=== PATIENT | female | born 1975 | race Caucasian/White ===

== ENCOUNTER 2018-07-22 17:32 | Emergency (ER) | payer BC ==
--- OUTSIDE RECORDS SUMMARY | 2018-07-22 17:34 | XMS REPORT ---
:1975 [facility] Address [address] [place] [address] Dr. Viramontes [address] [place] [id number] Care Team Providers Name Role Phone Unavailable Unavailable Unavailable Problems This patient has no known problems. Allergies, Adverse Reactions, Alerts This patient has no known allergies or adverse reactions. Medications This patient has no known medications.
--- OUTSIDE RECORDS SUMMARY | 2018-07-22 17:34 | XMS REPORT ---
:1975 Author Organization eClinical[employer] Care Team Providers Name Role Phone Tory Landaverde Provider Role Unavailable Allergies No Known Allergies Problems Problem Type Condition Code Onset Dates Condition Status Problem Hematuria, unspecified type R31.9 Active Problem Hypothyroidism, unspecified type E03.9 Active Problem Urinary tract infection, site not N39.0 Active specified Problem Obesity (BMI 35.0-39.9 without E66.9 Active comorbidity) Problem Hypercholesterolemia E78.00 Active Problem Hypertension, unspecified type I10 Active Problem Hyperglycemia R73.9 Active Medications No Known Medications Results No Known Results Summary Purpose eClinicalWorks Submission
--- OUTSIDE RECORDS SUMMARY | 2018-07-22 17:34 | XMS REPORT ---
:1975 Author Organization eClinical[employer] Care Team Providers Name Role Phone Amos Adriana Provider Role Unavailable Allergies, Adverse Reactions, Alerts Substance Reaction Event Type Procardia flushing/redness Drug Allergy Lisinopril fatigue Drug Allergy Problems Problem Type Condition Code Onset Dates Condition Status Assessment Insect bite, initial encounter W57.XXXA Active Assessment Cellulitis of left leg L03.116 Active Problem Hematuria, unspecified type R31.9 Active Problem Hypothyroidism, unspecified type E03.9 Active Problem Urinary tract infection, site not N39.0 Active specified Problem Obesity (BMI 35.0-39.9 without E66.9 Active comorbidity) Problem Hypercholesterolemia E78.00 Active Problem Hypertension, unspecified type I10 Active Problem Hyperglycemia R73.9 Active Medications Medication Code Code Instructions Start End Status Dosage System Date Date Flonase [facility] 96846379382 50 MCG/ACT Active 1 spray in Nasally Once a each day nostril Iron [facility] 12947577275 325 (65 Fe) MG Active 1 tablet Orally Once a day Synthroid [facility] 13009916817 88 MCG Orally Active 1 tablet Once a day on an empty stomach in the morning Losartan [facility] 81697241965 25 mg Orally Active 1 tablet Potassium Once a day Vitamin B-12 [facility] 34262259269 500 MCG Orally Active 1 tablet Once a day Clarinex-D 12 [facility] 17343312964 2.5-120 MG Active 1 tablet Hour Orally every 12 hrs Cipro [facility] 62079121999 500 MG Orally November 16, Active 1 tablet twice a day 2017 Clindamycin HCl [facility] 37229560011 300 MG Orally Dec 11, Active 1 capsule QID 2017 Results No Known Results Summary Purpose eClinicalWorks Submission
--- OUTSIDE RECORDS SUMMARY | 2018-07-22 17:34 | XMS REPORT ---
:1975 Author Organization eClinicalWorks Care Team Providers Name Role Phone Tory Landaverde Provider Role Unavailable Allergies, Adverse Reactions, Alerts Substance Reaction Event Type Procardia flushing/redness Drug Allergy Lisinopril fatigue Drug Allergy Problems Problem Type Condition Code Onset Dates Condition Status Assessment Hematuria, unspecified type R31.9 Active Assessment Urinary tract infection, site not N39.0 Active specified Problem Hematuria, unspecified type R31.9 Active Problem Hypothyroidism, unspecified type E03.9 Active Problem Urinary tract infection, site not N39.0 Active specified Problem Obesity (BMI 35.0-39.9 without E66.9 Active comorbidity) Problem Hypercholesterolemia E78.00 Active Problem Hypertension, unspecified type I10 Active Problem Hyperglycemia R73.9 Active Medications Medication Code Code Instructions Start End Status Dosage System Date Date Vitamin B-12 [facility] 45983669935 500 MCG Orally Active 1 tablet Once a day Cipro [facility] 80380054605 500 MG Orally November 16, Active 1 tablet twice a day 2017 Losartan [facility] 73355622905 25 mg Orally Active 1 tablet Potassium Once a day Flonase [facility] 80337115248 50 MCG/ACT Active 1 spray in Nasally Once a each day nostril Iron [facility] 07668196063 325 (65 Fe) MG Active 1 tablet Orally Once a day Clarinex-D [address] [facility] 21569814116 2.5-120 MG Active 1 tablet Hour Orally every 12 hrs Synthroid [facility] 53069154237 88 MCG Orally Active 1 tablet Once a day on an empty stomach in the morning Results Name Result Date Reference Range Unit Abnormality Flag URINALYSIS AUTO W/O SCOPE (10096) ----JOHN 1+ [id number] ----NIT POS [id number] ----PROTEIN 3+ [id number] ----pH 8.5 [id number] ----GLUCOSE NEG [id number] ----KETONES NEG [id number] ----SPECIFIC GRAVITY 1.020 20171116 ----BLO 3+ [id number] Summary Purpose eClinicalWorks Submission
--- OUTSIDE RECORDS SUMMARY | 2018-07-22 17:35 | XMS REPORT ---
:1975 Author Organization eClinicalWorks Care Team Providers Name Role Phone Adriana Foster Provider Role Unavailable Allergies No Known Allergies Problems Problem Type Condition Code Onset Dates Condition Status Problem Hypertension, unspecified type I10 Active Problem Hypercholesterolemia E78.00 Active Problem Hypothyroidism, unspecified type E03.9 Active Problem Bloating R14.0 Active Problem Abdominal pain, unspecified R10.9 Active abdominal location Problem History of ovarian cyst Z87.42 Active Problem Hyperglycemia R73.9 Active Problem Obesity (BMI 35.0-39.9 without E66.9 Active comorbidity) Problem Urinary tract infection, site not N39.0 Active specified Problem Hematuria, unspecified type R31.9 Active Medications No Known Medications Results No Known Results Summary Purpose eClinicalWorks Submission
--- OUTSIDE RECORDS SUMMARY | 2018-07-22 17:35 | XMS REPORT ---
:1975 Author Organization eClinicalWorks Care Team Providers Name Role Phone Anant Fosteren Provider Role Unavailable Allergies, Adverse Reactions, Alerts Substance Reaction Event Type Procardia flushing/redness Drug Allergy Lisinopril fatigue Drug Allergy Problems Problem Type Condition Code Onset Dates Condition Status Assessment Hyperglycemia R73.9 Active Assessment Hypertension, unspecified type I10 Active Assessment Obesity (BMI 35.0-39.9 without E66.9 Active comorbidity) Assessment Hypothyroidism, unspecified type E03.9 Active Assessment Hypercholesterolemia E78.00 Active Problem Hematuria, unspecified type R31.9 Active Problem Hypothyroidism, unspecified type E03.9 Active Problem Urinary tract infection, site not N39.0 Active specified Problem Obesity (BMI 35.0-39.9 without E66.9 Active comorbidity) Problem Hypercholesterolemia E78.00 Active Problem Hypertension, unspecified type I10 Active Problem Hyperglycemia R73.9 Active Medications Medication Code Code Instructions Start End Status Dosage System Date Date Cipro [facility] 80893337404 500 MG Orally November 16, Active 1 tablet twice a day 2017 Flonase [facility] 34789615024 50 MCG/ACT Active 1 spray in Nasally Once a each day nostril Iron [facility] 72205358945 325 (65 Fe) MG Active 1 tablet Orally Once a day Losartan ND 80997619366 25 mg Orally Active 1 tablet Potassium Once a day Clarinex-D 12 [facility] 66169346206 2.5-120 MG Active 1 tablet Hour Orally every 12 hrs Vitamin B-12 ND 61029061001 500 MCG Orally Active 1 tablet Once a day Clindamycin HCl ND 52049782492 300 MG Orally Dec 11, Active 1 capsule QID 2018 Synthroid [facility] 38706837820 88 MCG Orally Active 1 tablet Once a day on an empty stomach in the morning Results No Known Results Summary Purpose eClinicalWorks Submission
--- OUTSIDE RECORDS SUMMARY | 2018-07-22 17:35 | XMS REPORT ---
:1975 Author Organization eClinicalWorks Care Team Providers Name Role Phone Adriana Foster Provider Role Unavailable Allergies, Adverse Reactions, Alerts Substance Reaction Event Type Procardia flushing/redness Drug Allergy Lisinopril fatigue Drug Allergy Problems Problem Type Condition Code Onset Dates Condition Status Problem Hypertension, unspecified type I10 Active Problem Hypercholesterolemia E78.00 Active Problem Hypothyroidism, unspecified type E03.9 Active Assessment History of ovarian cyst Z87.42 Active Assessment Bloating R14.0 Active Assessment Abdominal pain, unspecified R10.9 Active abdominal location Problem Bloating R14.0 Active Problem Abdominal pain, unspecified R10.9 Active abdominal location Problem History of ovarian cyst Z87.42 Active Problem Hyperglycemia R73.9 Active Problem Obesity (BMI 35.0-39.9 without E66.9 Active comorbidity) Problem Urinary tract infection, site not N39.0 Active specified Problem Hematuria, unspecified type R31.9 Active Medications Medication Code Code Instructions Start End Status Dosage System Date Date Iron [facility] 83898411468 325 (65 Fe) MG Active 1 tablet Orally Once a day Clindamycin HCl ND 58428096191 300 MG Orally Dec 11, Active 1 capsule QID 2018 Clarinex-D 12 ND 37821387611 2.5-120 MG Active 1 tablet Hour Orally every 12 hrs Synthroid ND 04994371106 88 MCG Orally Active 1 tablet on Once a day an empty stomach in the morning Losartan ND 47470335071 25 mg Orally Active 1 tablet Potassium Once a day Vitamin B-12 ND 58171893157 500 MCG Orally Active 1 tablet Once a day Flonase ND 87075249051 50 MCG/ACT Active 1 spray in Nasally Once a each day nostril Cipro ND 87796329905 500 MG Orally November 16, Active 1 tablet twice a day 2017 Alprazolam ND 81957859375 0.25 MG Orally Feb 24, Active as directed 1 tablet 2017 minutes prior to dental procedure; may repeat prn in 30 minutes Results Name Result Date Reference Range Unit Abnormality Flag TEST URINE ----RESULTS Negative [id number] Summary Purpose eClinicalWorks Submission
--- OUTSIDE RECORDS SUMMARY | 2018-07-22 17:35 | XMS REPORT ---
:1975 Author Organization eClinicalWorks Care Team Providers Name Role Phone Anant Fosteren Provider Role Unavailable Allergies, Adverse Reactions, Alerts Substance Reaction Event Type Procardia flushing/redness Drug Allergy Lisinopril fatigue Drug Allergy Problems Problem Type Condition Code Onset Dates Condition Status Problem Obesity (BMI 35.0-39.9 without E66.9 Active comorbidity) Problem Hematuria, unspecified type R31.9 Active Problem Hyperglycemia R73.9 Active Problem Bloating R14.0 Active Assessment Hypercholesterolemia E78.00 Active Problem Abdominal pain, unspecified R10.9 Active abdominal location Assessment Hypothyroidism, unspecified type E03.9 Active Problem History of ovarian cyst Z87.42 Active Problem Obesity (BMI 30-39.9) E66.9 Active Problem Urinary tract infection, site not N39.0 Active specified Problem Dietary surveillance and counseling Z71.3 Active Problem Diverticulosis of intestine without K57.90 Active bleeding, unspecified intestinal tract location Assessment Obesity (BMI 35.0-39.9 without E66.9 Active comorbidity) Assessment Dietary surveillance and counseling Z71.3 Active Assessment Hyperglycemia R73.9 Active Assessment Hypertension, unspecified type I10 Active Problem Hypertension, unspecified type I10 Active Assessment Diverticulosis of intestine without K57.90 Active bleeding, unspecified intestinal tract location Problem Hypothyroidism, unspecified type E03.9 Active Assessment Influenza A H1N1 infection J10.1 Active Problem Hypercholesterolemia E78.00 Active Medications Medication Code Code Instructions Start End Status Dosage System Date Date Tamiflu ND 12641564646 75 MG Orally June Active 1 capsule Twice a day 2018 Alprazolam ND 48261877804 0.25 MG Orally Jan 30, Active as directed 1 tablet 30 2017 minutes prior to dental procedure; may repeat prn in 30 minutes Losartan ND 31843171414 25 mg Orally Active 1 tablet Potassium Once a day Synthroid ND 62537962444 88 MCG Orally Active 1 tablet on Once a day an empty stomach in the morning Flonase ND 33354705112 50 MCG/ACT Active 1 spray in Nasally Once a each day nostril Iron [facility] 72692832368 325 (65 Fe) MG Active 1 tablet Orally Once a day Cipro [facility] 97113383384 500 MG Orally November 16, Active 1 tablet twice a day 2017 Clindamycin HCl [facility] 41450913991 300 MG Orally Dec 11, Active 1 capsule QID 2017 Clarinex-D 12 [facility] 04669572563 2.5-120 MG Active 1 tablet Hour Orally every 12 hrs Vitamin B-12 [facility] 19794091920 500 MCG Orally Active 1 tablet Once a day Results No Known Results Summary Purpose eClinicalWorks Submission
[2018-07-22 20:36] LABS: Absolute Lymphocytes (CBC) 1.8 K/uL (0.7-4.9); Absolute Monocytes 0.5 K/uL (0.1-1.3); Absolute Neutrophil 4.4 K/uL (1.8-8.0); Basophils % 0.6 % (0-1.3); Eosinophils % 2.4 % (0-4.4); Hematocrit 41.4 % (36.0-45.0); Lymphocytes % 26.7 % (15.3-44.8); MPV 8.9 fL (7.6-11.3); Monocytes % 6.9 % (3.3-12.3); RBC Red Blood Cell Count 4.71 M/uL (3.86-4.86)
--- NOTE | 2018-07-22 20:47 | RAD REPORT ---
EXAM DESCRIPTION: Nithin Single View07/22/2018 8:35 pm CLINICAL HISTORY: Chest pain COMPARISON: 2013 FINDINGS: The patient is in a poor degree of inspiration Mild bilateral pulmonary opacities are suspected. Small pleural effusions may be present. The heart is normal size IMPRESSION: Mild bilateral pulmonary opacities may indicate pneumonia. Small pleural effusions may be present
[2018-07-22 20:51] LABS: BUN Blood Urea Nitrogen 14 mg/dL (7-18); Bicarbonate 28 mmol/L (21-32); Glucose Level 90 mg/dL (74-106); Potassium 4.4 mmol/L (3.5-5.1); Sodium Level 139 mmol/L (136-145); Troponin (Emerg Dept Use Only) < 0.02 ng/mL (0.0-0.045)
[2018-07-22 23:54] LABS: Urine Blood NEGATIVE (NEG); Urine Glucose NEGATIVE (NEG); Urine Protein NEGATIVE (NEG)
--- NOTE | 2018-07-23 00:18 | ER ---
Nurse's Notes [facility] Name: Felipa Hartman Age: 43 yrs Sex: Female : 1975 Arrival Date: 07/22/2018 Time: 17:35 Bed 17 Private MD: Diagnosis: Chest pain, unspecified;Pleurisy Presentation: 07/22 17:46 Presenting complaint: Patient states: i have chest pain that started 2 nights ago, it tw2 hurts when i take a deep breath and when i am laying down it hurts all the time as a severe pressure, yesterday it went a way during the day but last night it hurts worse. Transition of care: patient was not received from another setting of care. Onset of symptoms was July 22, 2018. Risk Assessment: Do you want to hurt yourself or someone else? Patient reports no desire to harm self or others. Initial Sepsis Screen: Does the patient meet any 2 criteria? No. Patient's initial sepsis screen is negative. Does the patient have a suspected source of infection? No. Patient's initial sepsis screen is negative. Care prior to arrival: None. 17:46 Method Of Arrival: Ambulatory tw2 17:46 Acuity: AMADOR 3 tw2 FRAME ALIGNER: 17:47 LMP 07/08/2018 tw2 Historical: - Allergies: 19:00 No Known Allergies; jb4 - Home Meds: 17:49 losartan 25 mg oral tab 1 tab once daily [Active]; levothyroxine 88 mcg tab 1 tab once tw2 daily [Active]; - PMHx: 17:49 Hypertension; Hypothyroidism; tw2 - PSHx: 17:49 Cholecystectomy; bone spur removed; tw2 - Immunization history:: Adult Immunizations. - Social history:: Smoking status: . - Ebola Screening: : Patient denies travel to an Ebola-affected area in the 21 days before illness onset. Screenin:00 Abuse screen: Denies threats or abuse. Nutritional screening: No deficits noted. jb4 Tuberculosis screening: No symptoms or risk factors identified. Fall Risk None identified. Assessment: 20:00 General: Appears in no apparent distress. uncomfortable, Behavior is calm, cooperative, jb4 appropriate for age. Pain: Complains of pain in anterior aspect of right upper chest Pain radiates to right upper quadrant Pain currently is 5 out of 10 on a pain scale. Quality of pain is described as stabbing, Pain began 2-3 days ago. Is continuous. Neuro: Level of Consciousness is awake, alert, obeys commands, Oriented to person, place, time, situation. Cardiovascular: Patient's skin is warm and dry. Respiratory: Airway is patent Respiratory effort is even, unlabored, Respiratory pattern is regular, symmetrical. GI: No signs and/or symptoms were reported involving the gastrointestinal system. : No signs and/or symptoms were reported regarding the genitourinary system. EENT: No signs and/or symptoms were reported regarding the EENT system. Derm: Skin is intact, Skin is pink, warm \T\ dry. Musculoskeletal: Circulation, motion, and sensation intact. 21:00 Reassessment: Patient appears in no apparent distress at this time. Patient and/or jb4 family updated on plan of care and expected duration. Pain level reassessed. Patient is alert, oriented x 3, equal unlabored respirations, skin warm/dry/pink. 22:00 Reassessment: Patient appears in no apparent distress at this time. Patient and/or jb4 family updated on plan of care and expected duration. Pain level reassessed. Patient is alert, oriented x 3, equal unlabored respirations, skin warm/dry/pink. 23:00 Reassessment: Patient appears in no apparent distress at this time. Patient and/or jb4 family updated on plan of care and expected duration. Pain level reassessed. Patient is alert, oriented x 3, equal unlabored respirations, skin warm/dry/pink. 07/23 00:00 Reassessment: Patient appears in no apparent distress at this time. Patient and/or jb4 family updated on plan of care and expected duration. Pain level reassessed. Patient is alert, oriented x 3, equal unlabored respirations, skin warm/dry/pink. Vital Signs: 07/22 17:47 BP 148 / 89; Pulse 73; Resp 17; Temp 97.9(TE); Pulse Ox 98% on R/A; Weight 98.43 kg tw2 (R); Height 5 ft. 6 in. (167.64 cm) (R); Pain 7/10; 20:00 BP 126 / 75; Pulse 65; Resp 16; Pulse Ox 100% on R/A; jb4 21:00 BP 134 / 89; Pulse 69; Resp 16; Pulse Ox 100% on R/A; jb4 22:15 BP 134 / 69; Pulse 70; Resp 16; Pulse Ox 100% on R/A; jb4 07/23 00:00 BP 124 / 72; Pulse 68; Resp 16; Pulse Ox 100% on R/A; jb4 07/22 17:47 Body Mass Index 35.02 (98.43 kg, 167.64 cm) tw2 ED Course: 07/22 17:35 Patient arrived in ED. tw3 17:47 Triage completed. tw2 17:49 Arm band placed on. tw2 19:42 Juno Wilkins MD is Attending Physician. gs 20:00 Patient has correct armband on for positive identification. Bed in low position. Call jb4 light in reach. Side rails up X 1. site monitor on. Pulse ox on. NIBP on. 20:00 No provider procedures requiring assistance completed. Patient maintains SpO2 jb4 saturation greater than 95% on room air. 20:35 XRAY Chest (1 view) In Process Unspecified. EDMS 20:53 Michael Mcclure, ZORA is Primary Nurse. jb4 21:[address] vm2 22:08 Inserted saline lock: 22 gauge in left antecubital area, using aseptic technique. by [facility] Tech. 22:30 CT Chest For PE Angio In Process Unspecified. EDDC 07/23 00:14 Yaniv Coon MD is Referral Physician. gs 00:26 IV discontinued, intact, bleeding controlled. jb4 Administered Medications: 00:07 Not Given (Patient Refused): TORadol 30 mg IVP once jb4 Outcome: 00:15 Discharge ordered by . gs 00:26 Discharged to home ambulatory. jb4 00:26 Condition: stable 00:26 Discharge instructions given to patient, Instructed on discharge instructions, follow up and referral plans. medication usage, Demonstrated understanding of instructions, follow-up care, medications, Prescriptions given X 3. 00:27 Patient left the ED. jb4 Addendum: 07/27/2018 17:08 Addendum: Radiology Result: Attempted to call patient to discuss radiology report. No s s answer. Left . Signatures: Dispatcher [facility] Holly Jimenez RN RN Amber Pennington RN RN tw2 Michael Mcclure, ZORA BLAKELY jb4 Cathleen Greene tw3 Lucille Torres vm2 Deidra Rodriguez mt, Gregory, MD MD
--- NOTE | 2018-07-23 00:19 | EDPHYS ---
Physician Documentation [facility] Name: Felipa Hartman Age: 43 yrs Sex: Female : 1975 Arrival Date: 07/22/2018 Time: 17:35 Bed 17 Private MD: ED Physician Juno Wilkins HPI: 07/23 03:22 This 43 yrs old Female presents to ER via Ambulatory with complaints of Chest gs Pain. 03:22 The patient or guardian reports chest pain that is located primarily in the anterior gs chest wall, right. 03:22 Onset: gradually, 3 day(s) ago. The pain does not radiate. Associated signs and gs symptoms: Pertinent positives: cough, Pertinent negatives: diaphoresis, lower extremity swelling, lightheadedness, near syncope, palpitations, shortness of breath. The chest pain is described as sharp. Duration: The patient or guardian reports multiple episodes, that wax and wane, with no pattern. Modifying factors: the symptoms are aggravated by cough, deep breath. Severity of pain: At its worst the pain was moderate in the emergency department the pain is unchanged. The patient has not experienced similar symptoms in the past. UNBUNDLER: 07/22 17:47 LMP 07/08/2018 tw2 Historical: - Allergies: 19:00 No Known Allergies; jb4 - Home Meds: 17:49 losartan 25 mg oral tab 1 tab once daily [Active]; levothyroxine 88 mcg tab 1 tab once tw2 daily [Active]; - PMHx: 17:49 Hypertension; Hypothyroidism; tw2 - PSHx: 17:49 Cholecystectomy; bone spur removed; tw2 - Immunization history:: Adult Immunizations. - Social history:: Smoking status: . - Ebola Screening: : Patient denies travel to an Ebola-affected area in the 21 days before illness onset. ROS: 07/23 03:22 All other systems are negative. gs Exam: 03:22 Head/Face: Normocephalic, atraumatic. Eyes: Pupils equal round and reactive to light, gs extra-ocular motions intact. Lids and lashes normal. Conjunctiva and sclera are non-icteric and not injected. Cornea within normal limits. Periorbital areas with no swelling, redness, or edema. ENT: Nares patent. No nasal discharge, no septal abnormalities noted. Tympanic membranes are normal and external auditory canals are clear. Oropharynx with no redness, swelling, or masses, exudates, or evidence of obstruction, uvula midline. Mucous membranes moist. Neck: Trachea midline, no thyromegaly or masses palpated, and no cervical lymphadenopathy. Supple, full range of motion without nuchal rigidity, or vertebral point tenderness. No Meningismus. Chest/axilla: Normal chest wall appearance and motion. Nontender with no deformity. No lesions are appreciated. Cardiovascular: Regular rate and rhythm with a normal S1 and S2. No gallops, murmurs, or rubs. Normal PMI, no JVD. No pulse deficits. Respiratory: Lungs have equal breath sounds bilaterally, clear to auscultation and percussion. No rales, rhonchi or wheezes noted. No increased work of breathing, no retractions or nasal flaring. Abdomen/GI: Soft, non-tender, with normal bowel sounds. No distension or tympany. No guarding or rebound. No evidence of tenderness throughout. Back: No spinal tenderness. No costovertebral tenderness. Full range of motion. Skin: Warm, dry with normal turgor. Normal color with no rashes, no lesions, and no evidence of cellulitis. MS/ Extremity: Pulses equal, no cyanosis. Neurovascular intact. Full, normal range of motion. Neuro: Awake and alert, GCS 15, oriented to person, place, time, and situation. Cranial nerves II-XII grossly intact. Motor strength 5/5 in all extremities. Sensory grossly intact. Cerebellar exam normal. Normal gait. 03:22 Constitutional: The patient appears alert, awake. 03:22 ECG was reviewed by the Attending Physician. Vital Signs: 07/22 17:47 BP 148 / 89; Pulse 73; Resp 17; Temp 97.9(TE); Pulse Ox 98% on R/A; Weight 98.43 kg tw2 (R); Height 5 ft. 6 in. (167.64 cm) (R); Pain 7/10; 20:00 BP 126 / 75; Pulse 65; Resp 16; Pulse Ox 100% on R/A; jb4 21:00 BP 134 / 89; Pulse 69; Resp 16; Pulse Ox 100% on R/A; jb4 22:15 BP 134 / 69; Pulse 70; Resp 16; Pulse Ox 100% on R/A; jb4 03/28 00:00 BP 124 / 72; Pulse 68; Resp 16; Pulse Ox 100% on R/A; [facility] 07/22 17:47 Body Mass Index 35.02 (98.43 kg, 167.64 cm) tw2 MDM: 07/22 20:04 Patient medically screened. 07/23 03:22 Differential diagnosis: abnormal EKG, coronary artery disease chest wall pain, gs pleurisy, pneumonia, pulmonary embolus. Data reviewed: vital signs, nurses notes, lab test result(s), EKG, radiologic studies. Counseling: I had a detailed discussion with the patient and/or guardian regarding: the historical points, exam findings, and any diagnostic results supporting the discharge/admit diagnosis, lab results, radiology results, the need for outpatient follow up. Response to treatment: the patient's symptoms have markedly improved after treatment, and as a result, I will discharge patient. ED course: NO FEVER MILD COUGH, DO NOT FEEL ABX WARRANTED MORE VIRAL PATTERN. 07/22 20:05 Order name: Basic Metabolic Panel; Complete Time: 20:58 07/22 20:05 Order name: CBC with Diff; Complete Time: 20:58 07/22 20:05 Order name: Troponin (emerg Dept Use Only); Complete Time: 20:58 07/22 20:05 Order name: D-Dimer; Complete Time: 20:58 07/22 21:31 Order name: Urine Dipstick--Ancillary (enter results); Complete Time: 00:00 [facility] 07/22 21:31 Order name: Urine --Ancillary (enter results); Complete Time: 00:00 [facility] 07/22 19:41 Order name: EKG; Complete Time: 19:41 [facility] 07/22 19:41 Order name: EKG - Nurse/Tech; Complete Time: 20:55 [facility] 07/22 20:05 Order name: XRAY Chest (1 view); Complete Time: 20:58 07/22 20:05 Order name: Cardiac monitoring; Complete Time: 20:55 07/22 20:05 Order name: IV Saline Lock; Complete Time: 20:53 07/22 20:05 Order name: Labs collected and sent; Complete Time: 20:55 07/22 21:02 Order name: CT Chest For PE Angio 07/22 20:05 Order name: O2 Per Protocol; Complete Time: 20:53 07/22 20:05 Order name: O2 Sat Monitoring; Complete Time: 20:53 07/22 20:05 Order name: Urine Test (obtain specimen); Complete Time: 21:28 07/22 20:05 Order name: Urine Dipstick-Ancillary (obtain specimen); Complete Time: 21:28 gs EC: Rate is 67 beats/min. Rhythm is regular. WI interval is normal. QRS interval is normal. gs QT interval is normal. T waves are Flattened. No ST changes noted. Clinical impression: NSR w/ Non-specific ST/T Changes. Interpreted by me. Administered Medications: 00:07 Not Given (Patient Refused): TORadol 30 mg IVP once jb4 Disposition: 07/23/18 00:15 Discharged to Home. Impression: Chest pain, unspecified, Pleurisy. - Condition is Stable. - Discharge Instructions: Nonspecific Chest Pain, Pleurisy. - Prescriptions for Prednisone 20 mg Oral Tablet - take 1 tablet by ORAL route once daily for 5 days; 5 tablet. Tylenol- Codeine #4 300-60 mg Oral Tablet - take 1 tablet by ORAL route every 6 hours As needed; 6 tablet. Albuterol Sulfate 90 mcg/actuation - inhale 1-2 puff by INHALATION route every 4-6 hours; 1 Inhaler. - Medication Reconciliation Form, Thank You Letter, Antibiotic Education, Prescription Opioid Use form. - Follow up: Private Physician; When: 1 - 2 days; Reason: Re-evaluation by your physician. Follow up: Yaniv Coon MD; When: 1 - 2 days; Reason: Re-evaluation by your physician. Signatures: Dispatcher [employer] EDKY Melisa Perry RN RN aj1 Amber Pennington RN RN tw2 Michael Mcclure RN RN jb4 Juno Wilkins MD MD Corrections: (The following items were deleted from the chart) 00:27 00:15 07/23/2018 00:15 Discharged to Home. Impression: Chest pain, unspecified; jb4 Pleurisy. Condition is Stable. Forms are Medication Reconciliation Form, Thank You Letter, Antibiotic Education, Prescription Opioid Use. Follow up: Private Physician; When: 1 - 2 days; Reason: Re-evaluation by your physician. Follow up: Yaniv Coon; When: 1 - 2 days; Reason: Re-evaluation by your physician. gs
--- NOTE | 2018-07-23 06:02 | EKG ---
Test Date: 2018-07-22 Test Time: 17:54:05 Cushion Maker: ELIZABETH MEASUREMENT RESULTS: Intervals: Rate: 67 ID: [id number] QRSD: 78 QT: 380 QTc: 401 [place]: P: 30 ID: [id number] QRS: 13 T: 14 INTERPRETIVE STATEMENTS: Normal sinus rhythm Cannot rule out Anterior infarct, age undetermined Abnormal ECG No previous ECG available for comparison Electronically Signed On 07-23-18 06:01:47 CDT by Yaniv Coon
--- NOTE | 2018-07-23 12:56 | RAD REPORT ---
EXAM DESCRIPTION: CT - Chest For Pe Angio - 07/22/2018 10:53 pm CLINICAL HISTORY: The patient is 43 years old and is Female; CHEST PAIN TECHNIQUE: Axial computed tomographic angiography images of the chest with intravenous contrast [facility] [place]. Sagittal and coronal reformatted images were created and reviewed. Sagittal and coronal reformatted images were created and reviewed. This CT exam was performed [facility] [place] one or more of the following dose reduction techniques: automated exposure control, adjustment of the mA and/or kV according to patient size, and/or use of iterative reconstruction technique. MIP reconstructed images were created and reviewed. COMPARISON: No relevant prior studies available. FINDINGS: ARTIFACTS: The exam is suboptimal secondary to motion artifact. PULMONARY ARTERIES: The main pulmonary arteries and proximal segmental branches opacify normally and are without filling defect. AORTA: No acute findings. No thoracic aortic aneurysm. OTHER ARTERIES: An apparent right subclavian artery is present. LUNGS: Nonspecific subtle scattered groundglass opacities are present. Minimal bibasilar atele ctasis is present. PLEURAL SPACE: A small right pleural effusion is present. No pneumothorax. HEART: Unremarkable. No cardiomegaly. No significant pericardial effusion. No evidence of RV dysfunction. BONES/JOINTS: No acute fracture. No dislocation. SOFT TISSUES: Unremarkable. LYMPH NODES: Unremarkable. No enlarged lymph nodes. IMPRESSION: 1. The main pulmonary arteries and proximal segmental branches opacify normally and ar e without filling defect. The remainder of the pulmonary vessels are not adequately evaluated secon char to motion artifact. 2. Small right pleural effusion. 3. Subtle scattered groundglass opacities and septal thickening. Groundglass opacification is a non specific finding and not necessarily indicative of significant pathology. However, in the appropriate clinical setting, pulmonary edema, pneumonia, or various causes of alveolitis should be considered. Electronically signed by: Sienna Valentine MD 07/22/2018 10:38 PM CDT Due to temporary technical issues with the PACS/Fluency reporting system, reports are being signed by the in house radiologist as a courtesy to ensure prompt reporting. The interpreting radiologist is f ully responsible for the content of the report.
== END 2018-07-23 00:27 | disposition home or self-care (01) ==
LOC: ER 17:32
DX: R07.9 Chest pain, unspecified (principal); R09.1 Pleurisy; I10 Essential (primary) hypertension; E03.9 Hypothyroidism, unspecified
CPT/HCPCS: 36415; 71045; 71275; 80048; 81003; 81025; 84484; 85025; 85379; 93005; 99285; Q9967